=== PATIENT | male | born 1950 | race African-American/Black ===

== ENCOUNTER 2021-08-19 11:21 | Emergency (ER) | payer MEDICARE, OTHER ==
[~2021-08-19] VITALS: Ht 182.9 cm; Wt 81.8 kg
[~2021-08-19 11:21] MED LIST: PHEN100C23 PO
[2021-08-19 12:34] VITALS: BP 157/85
== END 2021-08-19 12:32 | disposition home or self-care (01) ==
LOC: EMS 11:21
DX: K40.90 Unilateral inguinal hernia, without obstruction or gangrene, not specified as recurrent (principal)
CPT/HCPCS: 99281; Z7502